=== PATIENT | female | born 1965 | race Caucasian/White ===

== ENCOUNTER 2016-12-29 13:49 | Outpatient (CLI) | payer MEDICARE, OTHER ==
[2016-08-31 19:31] VITALS: BP 113/78
--- NOTE | 2016-12-29 20:35 | Diagnostic Imaging Report ---
[facility] [address] [facility].[address] [address] Report Submission Date: Dec 29, 2016 3:16:07 PM CDT Patient Study Name: SHERYL MARROQUIN Date: Dec 29, 2016 2:07:34 PM CDT Modality Type: CR Gender: F Description: CHEST : 61 Institution: [facility] Physician: RACHEAL GAO - BLAIR chest History: Rib pain and cough Findings: A healed right humeral neck fracture, obesity, and thoracic kyphosis are observed. Right basilar reticular opacities and bronchial wall thickening are observed. The left lung is clear. No pleural effusions are identified. Heart size and pulmonary vascularity are normal. 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 Impression: Suspect right basilar bronchitis. No other acute abnormality observed. Electronically signed on Dec 29, 2016 3:16:07 PM CDT by: Edvin MON
--- NOTE | 2016-12-29 20:36 | Diagnostic Imaging Report ---
[facility] [address] [facility].[address] [address] Report Submission Date: Dec 29, 2016 3:18:07 PM CDT Patient Study Name: SHERYL MARROQUIN Date: Dec 29, 2016 2:10:08 PM CDT Modality Type: CR Gender: F Description: CHEST : 61 Institution: [facility] Physician: RACHEAL GAO - TIFFANY Bilateral ribs History: Left rib pain when coughing Findings: The exam is limited due to obesity and osteopenia. Multiple thoracic vertebroplasties and a healed right humeral neck fracture are noted. There is no definite displaced rib fracture or focal rib lesion. Impression: No definite displaced rib fracture. However, nondisplaced rib fractures could easily be obscured due to osteopenia and obesity. Electronically signed on Dec 29, 2016 3:18:07 PM CDT by: Edvin MON
== END 2016-12-29 13:50 ==
LOC: RAD 13:49
PROVIDERS: ATTEND Family Medicine
DX: R07.81 Pleurodynia (principal)
CPT/HCPCS: 71010; 71110

== ENCOUNTER 2017-03-14 09:39 | Outpatient (CLI) | payer MEDICARE, OTHER ==
[2016-08-31 19:31] VITALS: BP 113/78
--- NOTE | 2017-03-14 14:54 | Diagnostic Imaging Report ---
RACHEAL GAO [facility] [address] [facility] [address] [place], [place]. [address] Report Submission Date: Mar 14, 2017 1:23:17 PM CDT Patient Study Name: SHERYL MARROQUIN Date: Mar 14, 2017 11:40:30 AM CDT Modality Type: CT\SR Gender: F Description: : 61 Institution: [facility] Physician: RACHEAL GAO Examination: CT Abdomen/pelvis History: Abdominal discomfort Comparison exam none provided Technique: CT Abdomen/pelvis oral contrast only. Findings: Liver without cortical irregularity. No regions of altered parenchymal attenuation. Spleen not enlarged. Mild prominence of the right adrenal gland - measuring 1 cm x 1.3 cm. Central Hounsfield units of -2. Left adrenal gland within normal limits. Mild atrophy of the left renal cortical margin. No exophytic mass identified. Right kidney with mild peripheral scarring. Right ureter without abnormal dilation nor is there evidence for calcification centrally as it courses inferiorly towards the bladder. Left ureter also without abnormal dilation or calcification. Scattered pelvic phleboliths. Pancreas without irregularity. Absence of the gallbladder, correlate with surgical history. Abdominal aorta demonstrates peripheral atherosclerotic disease, no aneurysmal dilation. Within the mid to upper left abdomen are some small bowel loops of bowel with thickened mucosa associated air fluid levels. Remainder of the small bowel is without irregularity. Large bowel with stool centrally limiting evaluation. No mesenteric inflammatory changes or free fluid. Anterior midline abdominal and surgical scar. Osseous structures demonstrate degenerative changes. Lung bases with posterior pleural thickening: left greater than right. Kyphoplasty T11 and T12. Impression: Limited study due to non-IV contrast technique. No evidence for suspicious abdominal mass or lesion. Right adrenal adenoma. Few loops small bowel within the upper mid to left abdomen with thickened mucosum and air fluid levels suggesting mild ileitis. No overt obstruction. Correlate with patient symptomatology and follow as clinically warranted. Electronically signed on Mar 14, 2017 1:23:17 PM CDT by: Nabor MON
== END 2017-03-14 09:40 ==
LOC: RAD 09:39
PROVIDERS: ATTEND Family Medicine
DX: R19.00 Intra-abdominal and pelvic swelling, mass and lump, unspecified site (principal)
CPT/HCPCS: 74176; A9698

== ENCOUNTER 2017-04-19 10:17 | Outpatient (CLI) | payer MEDICARE, OTHER ==
[2016-08-31 19:31] VITALS: BP 113/78
[2017-04-20 11:50] LABS: ADENOVIRUS F 40/41 Not Detected (Not Detected); ASTROVIRUS Not Detected (Not Detected); C. DIFFICILE (TOXIN A/B) Not Detected (Not Detected); CRYPTOSPORIDIUM Not Detected (Not Detected); CYCLOSPORA CAYETANENSIS Not Detected (Not Detected); ENTAMOEBA HISTOLYTICA Not Detected (Not Detected); GIARDIA LAMBLIA Not Detected (Not Detected); ROTAVIRUS A Not Detected (Not Detected); SAPOVIRUS Not Detected (Not Detected); VIBRIO CHOLERAE Not Detected (Not Detected)
== END 2017-04-19 10:20 ==
LOC: LAB 10:17
PROVIDERS: ATTEND Internal Medicine
DX: R19.7 Diarrhea, unspecified (principal)
CPT/HCPCS: 36415; 83516; 86256; 87507

== ENCOUNTER 2017-05-27 15:26 | Emergency (ER) | payer MEDICARE, OTHER ==
--- NOTE | 2017-05-27 16:22 | Diagnostic Imaging Report ---
[facility] [address] [facility].[address] [address] Report Submission Date: May 27, 2017 4:18:45 PM CDT Patient Study Name: SHERYL MARROQUIN Date: May 27, 2017 3:51:27 PM CDT Modality Type: CR Gender: F Description: CHEST : 61 Institution: [facility] Physician: PHILLIP BAH - ER Examination: Plain film chest/ribs History: Injury Findings: 5 views of the ribs normal cortical margins. No fracture or dislocation. Adjacent parenchyma demonstrates scarring. Impression: No rib fracture. Electronically signed on May 27, 2017 4:18:45 PM CDT by: Nabor MON
[2017-05-27 16:42] VITALS: BP 128/80
--- NOTE | 2017-05-27 16:42 | ED Physician Documentation ---
General Adult - HISTORIAN Historian: patient - HPI Stated Complaint: Right Rib Pain Chief Complaint: General Adult Additional Information: rt lat low rib pain after twisted and heard/felt pop rt rib cage-xray=no fx Onset: hours (1500hrs) Timing: still present Severity: mild, moderate Further Comments: yes (pt sig obesity has osteoporosis) - ROS CONST: no problems EYES/ENT: denies: problems with vision CVS/RESP: chest pain (area rib c/o) GI/: none MS/SKIN/LYMPH: none NEURO/PSYCH: denies: headache, fainting, dizziness, difficulty with speech ( osteoporosis fibromyalgia dm [id number] disease bad knees) - PAST HX Past History: other (as above) Surgeries/Procedures: , cholecystectomy (throat reconstruction), hysterectomy Allergies/Adverse Reactions: Allergies Allergy/AdvReac Type Severity Reaction Status Date / Time albuterol Allergy Verified 05/27/17 15:53 bupropion HCl Allergy Verified 05/27/17 15:53 [From Wellbutrin] citalopram hydrobromide Allergy Verified 05/27/17 15:53 [From Celexa] clonazepam [From Klonopin] Allergy Verified 05/27/17 15:53 codeine Allergy Verified 05/27/17 15:53 divalproex sodium Allergy Verified 05/27/17 15:53 [From Depakote] furosemide [From Lasix] Allergy Verified 05/27/17 15:53 lithium [[place]] Allergy Verified 05/27/17 15:53 metaxalone [Metaxalone] Allergy Verified 05/27/17 15:53 nickel [Nickel] Allergy Verified 05/27/17 15:53 Penicillins Allergy Verified 05/27/17 15:53 iodotape Allergy Uncoded 05/27/17 15:53 ivp dye Allergy Uncoded 05/27/17 15:53 metal Allergy Uncoded 05/27/17 15:53 steroids Allergy Uncoded 05/27/17 15:53 Home Medications: Ambulatory Orders Medication Instructions Recorded Dextroamphetamine/Amphetamine 30 mg PO D 09/05/13 [Adderall Xr 25 mg Capsule] Ibuprofen [Advil] 400 - 800 mg PO TID #30 tablet 09/05/13 Losartan Potassium [Cozaar] 25 mg PO D 09/05/13 Milnacipran HCl [Savella] 25 mg PO BID 09/05/13 Women's One A Day 1 tab PO D 09/05/13 Amitriptyline HCl [Amitriptyline 50 mg PO D 03/30/16 HCl] Atorvastatin Calcium [Atorvastatin 10 mg PO D 03/30/16 Calcium] Calcium Carbonate [Calcium] 500 mg PO D 03/30/16 Clonidine HCl [Catapres] 0.1 mg PO D 03/30/16 Cyclobenzaprine HCl 5 mg PO D 03/30/16 Diazepam [Diazepam] 10 mg PO D 03/30/16 Aspirin [Duncan] 81 mg PO DAILY 08/31/16 Canagliflozin/Metformin HCl 1 tab PO BID 08/31/16 [Invokamet 150-1,000 mg Tablet] Chlorthalidone [Thalitone] 100 mg PO DAILY 08/31/16 Docusate Sodium [Colace] 100 mg PO DAILY 08/31/16 Polyethylene Glycol 3350 [Miralax] 17 gm PO DAILY 08/31/16 Zoledronic Acid [Reclast] 5 mg IM MONTH 08/31/16 Hydrocodone/Acetaminophen 1 each PO Q4-6 PRN 05/27/17 [Hydrocodon-Acetaminophen 5-325] - SOCIAL HX Smoking History: less than 1 pack/day Alcohol Use: none Drug Use: none - FAMILY HX Family History: No - VITAL SIGNS Vital Signs: Vital Signs Temp Pulse Resp BP Pulse Ox 97 F L 78 18 110/68 99 05/27/17 15:30 05/27/17 15:30 05/27/17 15:30 05/27/17 15:30 05/27/17 15:30 - REVIEWED ASSESSMENTS Nursing Assessment Reviewed: Yes Vitals Reviewed: Yes ED Results Lab/Radiology - Orders Orders: ED Orders Category Date Time Status RIBS UNILAT 2 VIEWS [RAD] Stat Exams 05/27/17 Completed General Adult Physical Exam - PHYSICAL EXAM GENERAL APPEARANCE: mild distress EENT: eye inspection normal NECK: normal inspection, thyroid normal RESPIRATORY: no resp distress, chest non-tender, breath sounds normal CVS: reg rate & rhythm, heart sounds normal ABDOMEN: soft, non-tender BACK: normal inspection SKIN: warm/dry, normal color. No: cyanosis, diaphoresis EXTREMITIES: non-tender, normal range of motion NEURO: oriented X3 Discharge Clincal Impression: costo chondral separation Referrals: Nj Mancilla MD [Primary Care Provider] - 2 Days Home Medications: Ambulatory Orders Dextroamphetamine/Amphetamine [Adderall Xr 25 mg Capsule] 30 mg PO D 09/05/13 Ibuprofen [Advil] 400 - 800 mg PO TID #30 tablet 09/05/13 Losartan Potassium [Cozaar] 25 mg PO D 09/05/13 Milnacipran HCl [Savella] 25 mg PO BID 09/05/13 Women's One A Day 1 tab PO D 09/05/13 Amitriptyline HCl [Amitriptyline HCl] 50 mg PO D 03/30/16 Atorvastatin Calcium [Atorvastatin Calcium] 10 mg PO D 03/30/16 Calcium Carbonate [Calcium] 500 mg PO D 03/30/16 Clonidine HCl [Catapres] 0.1 mg PO D 03/30/16 Cyclobenzaprine HCl 5 mg PO D 03/30/16 Diazepam [Diazepam] 10 mg PO D 03/30/16 Aspirin [Duncan] 81 mg PO DAILY 08/31/16 Canagliflozin/Metformin HCl [Invokamet 150-1,000 mg Tablet] 1 tab PO BID Chlorthalidone [Thalitone] 100 mg PO DAILY 08/31/16 Docusate Sodium [Colace] 100 mg PO DAILY 08/31/16 Polyethylene Glycol 3350 [Miralax] 17 gm PO DAILY 08/31/16 Zoledronic Acid [Reclast] 5 mg IM MONTH 08/31/16 Hydrocodone/Acetaminophen [Hydrocodon-Acetaminophen 5-325] 1 each PO Q4-6 PRN Comments: ibu 600 tid Condition: Good Disposition: 01 HOME, SELF-CARE Decision to Admit: NO Decision Time: 16:46
== END 2017-05-27 16:40 | disposition home or self-care (01) ==
LOC: ED 15:26
DX: R07.81 Pleurodynia (principal)
CPT/HCPCS: 71100; 99283

== ENCOUNTER 2017-07-02 11:49 | Emergency (ER) | payer MEDICARE, OTHER ==
--- NOTE | 2017-07-02 17:15 | Diagnostic Imaging Report ---
[facility] [address] [facility].[address] [address] Report Submission Date: Jul 02, 2017 12:27:30 PM CDT Patient Study Name: SHERYL MARROQUIN Date: Jul 02, 2017 12:04:05 PM CDT Modality Type: CR Gender: F Description: CHEST : 61 Institution: [facility] Physician: PHILLIP BAH - BELLA Chest -two views CLINICAL HISTORY: Right rib pain. Frequent falls. FINDINGS: Examination of the chest PA and lateral views with comparison to examination of 05/27/2017 demonstrates the lungs to be free of coalescent infiltrate. Cardiac silhouette is enlarged and the aorta is atherosclerotic. Post vertebroplasty changes are seen in the mid thoracic and thoracolumbar regions. Degenerative changes are seen throughout the thoracic vertebrae. IMPRESSION: Cardiomegaly and aortic atherosclerosis. No coalescent infiltrate. No definite fracture. Electronically signed on Jul 02, 2017 12:27:30 PM CDT by: Hitesh MON
--- NOTE | 2017-07-10 14:33 | ED Physician Documentation ---
General Adult - HISTORIAN Historian: patient - HPI Chief Complaint: Chest Pain Additional Information: RT RIB PAIN HAS BEEN THERE SEVERAL DAYS PREV TOLD PULLED RIBS. TENDER TO TOUCH WHEN MOVES CERTAIN WAY. SHE DOES NOT REMBER SPECIFIC TRAUMA Timing: still present Severity: mild, moderate Further Comments: yes (PT IS VERY NON COMPLIANT W/DIABETES HBA1C QUITE HIGH ACCD TO FAMILY) - ROS CONST: no problems CVS/RESP: chest pain, shortness of breath (HURT TO DEEP BREATHE) NEURO/PSYCH: anxiety, depression - PAST HX Past History: hypertension, other (DI\) Other History: diabetes Type 1 Allergies/Adverse Reactions: Allergies Allergy/AdvReac Type Severity Reaction Status Date / Time albuterol Allergy Verified 05/27/17 15:53 bupropion HCl Allergy Verified 05/27/17 15:53 [From Wellbutrin] citalopram hydrobromide Allergy Verified 05/27/17 15:53 [From Celexa] clonazepam [From Klonopin] Allergy Verified 05/27/17 15:53 codeine Allergy Verified 05/27/17 15:53 divalproex sodium Allergy Verified 05/27/17 15:53 [From Depakote] furosemide [From Lasix] Allergy Verified 05/27/17 15:53 lithium [[place]] Allergy Verified 05/27/17 15:53 metaxalone [Metaxalone] Allergy Verified 05/27/17 15:53 nickel [Nickel] Allergy Verified 05/27/17 15:53 Penicillins Allergy Verified 05/27/17 15:53 iodotape Allergy Uncoded 05/27/17 15:53 ivp dye Allergy Uncoded 05/27/17 15:53 metal Allergy Uncoded 05/27/17 15:53 steroids Allergy Uncoded 05/27/17 15:53 Home Medications: Ambulatory Orders Medication Instructions Recorded Dextroamphetamine/Amphetamine 30 mg PO D 09/05/13 [Adderall Xr 25 mg Capsule] Ibuprofen [Advil] 400 - 800 mg PO TID #30 tablet 09/05/13 Losartan Potassium [Cozaar] 25 mg PO D 09/05/13 Milnacipran HCl [Savella] 25 mg PO BID 09/05/13 Women's One A Day 1 tab PO D 09/05/13 Amitriptyline HCl [Amitriptyline 50 mg PO D 03/30/16 HCl] Atorvastatin Calcium [Atorvastatin 10 mg PO D 03/30/16 Calcium] Calcium Carbonate [Calcium] 500 mg PO D 03/30/16 Clonidine HCl [Catapres] 0.1 mg PO D 03/30/16 Cyclobenzaprine HCl 5 mg PO D 03/30/16 Diazepam [Diazepam] 10 mg PO D 03/30/16 Aspirin [Duncan] 81 mg PO DAILY 08/31/16 Canagliflozin/Metformin HCl 1 tab PO BID 08/31/16 [Invokamet 150-1,000 mg Tablet] Chlorthalidone [Thalitone] 100 mg PO DAILY 08/31/16 Docusate Sodium [Colace] 100 mg PO DAILY 08/31/16 Polyethylene Glycol 3350 [Miralax] 17 gm PO DAILY 08/31/16 Zoledronic Acid [Reclast] 5 mg IM MONTH 08/31/16 Hydrocodone/Acetaminophen 1 each PO Q4-6 PRN 05/27/17 [Hydrocodon-Acetaminophen 5-325] - SOCIAL HX Smoking History: cigarettes Alcohol Use: none Drug Use: none - FAMILY HX Family History: No - VITAL SIGNS Vital Signs: Vital Signs Temp Pulse Resp BP Pulse Ox 128/80 05/27/17 16:40 - REVIEWED ASSESSMENTS Nursing Assessment Reviewed: Yes Vitals Reviewed: Yes ED Results Lab/Radiology - Radiology Radiology Impressions: NO ACUTE DISTRESS NOTED - Orders Orders: ED Orders Category Date Time Status CHEST P.A.&LAT 2 VIEWS [RAD] Routine Exams 07/02/17 Completed General Adult Physical Exam - PHYSICAL EXAM GENERAL APPEARANCE: moderate distress EENT: eye inspection normal NECK: normal inspection CVS: reg rate & rhythm, heart sounds normal ABDOMEN: non-tender SKIN: warm/dry, normal color. No: cyanosis, diaphoresis EXTREMITIES: non-tender NEURO: oriented X3, motor nml, sensation nml. No: mood/affect nml Discharge Clincal Impression: CONTUSION RIBS POSS COSTO CHONDRAL SYNDR, UNC IABETES Referrals: Primary Doctor,No [Primary Care Provider] - 2 Days Disposition: 01 HOME, SELF-CARE Decision to Admit: NO Decision Time: 12:30
== END 2017-07-02 12:45 | disposition home or self-care (01) ==
LOC: ED 11:49
DX: R07.81 Pleurodynia (principal); E11.649 Type 2 diabetes mellitus with hypoglycemia without coma
CPT/HCPCS: 71020; 99283

== ENCOUNTER 2017-12-14 16:03 | Outpatient (CLI) | payer MEDICARE, OTHER | END 2017-12-14 16:04 | LOC: RAD 16:03 | PROVIDERS: ATTEND Family Medicine | DX: T17.908A Unspecified foreign body in respiratory tract, part unspecified causing other injury, initial encounter (principal); Y99.9 Unspecified external cause status | CPT/HCPCS: 74230; 92611; G8996; G8997 ==

== ENCOUNTER 2017-12-21 18:25 | Emergency (ER) | payer MEDICARE, OTHER ==
[2017-12-21] MEDS ORDERED: 0.9 % SODIUM CHLORIDE 1,000 ML IV ONE (18:42)
[2017-12-21 19:20] LABS: BASOPHILS % 0.3 (0.0-1.5); EOSINOPHILS % 1.3 % (0.0-6.8); MEAN CORPUSCULAR HEMOGLOBIN 30.4 pg (28.0-34.0); MEAN CORPUSCULAR VOLUME 95.4 fl (80.0-100.0); MONOCYTES % 4.7 % (0.0-11.0)
[2017-12-21] MEDS ORDERED: LEVALBUTEROL HCL 1.25 MG/3 ML AMPUL.NEB NEB ONE (19:33)
--- NOTE | 2017-12-21 19:33 | ED Physician Documentation ---
Dyspnea - HISTORIAN Historian: patient - HPI Stated Complaint: Shortness of air Chief Complaint: Dyspnea Onset: hours Duration: continues in ED Initiating Event: upper respiratory illness Severity: moderate Exacerbated By: nothing Associated Symptoms: productive cough Further Comments: yes (52 year old female patient presents with complaints of SOB and low O2 sat. On arrival RA Sat 88%, patient with extremely strong smell of cigarettes.) - ROS CONST: no problems EYES/ENT: none GI/: none NEURO/PSYCH: denies: headache MS/SKIN/LYMPH: none - PAST HX Lung Disease: COPD Cardiac Disease: CAD PE Risk Factors: hypertension, other (morbid obesity, depression) Allergies/Adverse Reactions: Allergies Allergy/AdvReac Type Severity Reaction Status Date / Time albuterol Allergy Verified 12/21/17 18:39 bupropion HCl Allergy Verified 12/21/17 18:39 [From Wellbutrin] citalopram hydrobromide Allergy Verified 12/21/17 18:39 [From Celexa] clonazepam [From Klonopin] Allergy Verified 12/21/17 18:39 codeine Allergy Verified 12/21/17 18:39 divalproex sodium Allergy Verified 12/21/17 18:39 [From Depakote] furosemide [From Lasix] Allergy Verified 12/21/17 18:39 lithium [[place]] Allergy Verified 12/21/17 18:39 metaxalone [Metaxalone] Allergy Verified 12/21/17 18:39 nickel [Nickel] Allergy Verified 12/21/17 18:39 Penicillins Allergy Verified 12/21/17 18:39 iodotape Allergy Uncoded 12/21/17 18:39 ivp dye Allergy Uncoded 12/21/17 18:39 metal Allergy Uncoded 12/21/17 18:39 steroids Allergy Uncoded 12/21/17 18:39 Home Medications: Ambulatory Orders Medication Instructions Recorded Dextroamphetamine/Amphetamine 30 mg PO D 09/05/13 [Adderall Xr 25 mg Capsule] Ibuprofen [Advil] 400 - 800 mg PO TID #30 tablet 09/05/13 Losartan Potassium [Cozaar] 25 mg PO D 09/05/13 Milnacipran HCl [Savella] 25 mg PO BID 09/05/13 Women's One A Day 1 tab PO D 09/05/13 Amitriptyline HCl [Amitriptyline 50 mg PO D 03/30/16 HCl] Atorvastatin Calcium [Atorvastatin 10 mg PO D 03/30/16 Calcium] Calcium Carbonate [Calcium] 500 mg PO D 03/30/16 Clonidine HCl [Catapres] 0.1 mg PO D 03/30/16 Cyclobenzaprine HCl 5 mg PO D 03/30/16 Aspirin [Duncan] 81 mg PO DAILY 08/31/16 Chlorthalidone [Thalitone] 100 mg PO DAILY 08/31/16 Docusate Sodium [Colace] 100 mg PO DAILY 08/31/16 Polyethylene Glycol 3350 [Miralax] 17 gm PO DAILY 08/31/16 Zoledronic Acid [Reclast] 5 mg IM MONTH 08/31/16 Hydrocodone/Acetaminophen 1 each PO Q4-6 PRN 05/27/17 [Hydrocodon-Acetaminophen 5-325] Azithromycin [Zithromax] 250 mg PO DAILY #6 tablet 12/21/17 Dapagliflozin Propanediol [Farxiga] 10 mg PO QDAY 12/21/17 - SOCIAL HX Smoking History: cigarettes - FAMILY HX Family History: denies: none - VITAL SIGNS Vital Signs: Vital Signs Temp Pulse Resp BP Pulse Ox 98.3 F 102 H 22 153/75 89 L 12/21/17 18:25 12/21/17 18:25 12/21/17 18:25 12/21/17 18:25 12/21/17 18:25 - REVIEWED ASSESSMENTS Nursing Assessment Reviewed: Yes Vitals Reviewed: Yes Progress - Progress Progress: Patient states she feels better after Xopenex. Tolerated well. Does not have nebulizer at home. Discharged with Xopenex inhaler. States she cannot take steroids, "causes me to swell". ED Results Lab/Radiology - Lab Results Lab Results: Lab Results 12/21/17 12/21/17 18:55 18:55 WBC 12.40 K/ul H K/ul (4.00-12.00) RBC 5.54 M/ul H M/ul (3.90-5.20) Hgb 16.9 g/dL H g/dL (12.0-16.0) Hct 52.9 % H % (34.5-46.5) MCV 95.4 fl fl (80.0-100.0) MCH 30.4 pg pg (28.0-34.0) MCHC 31.9 g/dL g/dL (30.0-36.0) RDW 17.3 % H % (11.3-14.3) Plt Count 325 K/mm3 K/mm3 (130-400) Neut % (Auto) 80.6 % H % (39.0-79.0) Lymph % (Auto) 11.7 % L % (16.0-50.0) Burt % (Auto) 4.7 % % (0.0-11.0) Eos % (Auto) 1.3 % % (0.0-6.8) Baso % (Auto) 0.3 (0.0-1.5) Neut # (Auto) 10.0 # k/uL H # k/uL (1.4-7.7) Lymph # (Auto) 1.4 # k/uL # k/uL (0.6-4.0) Burt # (Auto) 0.6 # k/uL # k/uL (0.0-0.9) Eos # (Auto) 0.2 # k/uL # k/uL (0.0-0.6) Baso # (Auto) 0.0 # k/uL # k/uL (0.0-0.5) Reactive Lymphs % 1.5 % % (0.0-5.0) Reactive Lymphs # 0.2 # k/uL # k/uL (0.0-0.8) CK-MB (CK-2) 1.7 ng/mL ng/mL (0.0-5.6) - Radiology Radiology Impressions: Chest, 2 view History: COUGH, DYSPNEA TODAY, SMOKER (Hx) Findings: Examination is severely limited by patient's large body habitus. There is mild vascular congestion. No large pleural effusion or pneumothorax grossly identified. Impression: 1. Limited exam due to patient's large body habitus. 2. Cardiomegaly with vascular congestion Electronically signed on Dec 21, 2017 7:17:16 PM CDT by: Alejandro Schmidt - Orders Orders: ED Orders Category Date Time Status Place IV Lock 1T Care 12/21/17 18:42 Active CHEST 2VIEW [RAD] Stat Exams 12/21/17 18:42 Ordered CBC/PLATELET/DIFF Stat Lab 12/21/17 18:55 Completed CKMB Stat Lab 12/21/17 18:55 Completed CMP Stat Lab 12/21/17 19:31 Ordered 0.9 % Sodium Chloride [Normal Saline] 1,000 ml Med 12/21/17 18:42 Discontinued IV NOW Dyspnea Physical Exam - EXAM General Appearance: mild distress EENT: eye inspection normal, [place] Respiratory: no resp. distress, no pain on inspiration, speaks full sentences, decreased air movement (bilateral bases). No: wheezes CVS: reg. 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
[2017-12-21 19:52] LABS: eGFR (African) > 60; eGFR (Non-African) > 60
[2017-12-21 21:53] VITALS: BP 148/68
--- NOTE | 2017-12-22 05:42 | Diagnostic Imaging Report ---
SAGAR PALENCIA (MECHANICAL MAINTENANCE INSTRUCTOR) - ER [facility] [address] [facility] [address] [place], [place]. [address] Report Submission Date: Dec 21, 2017 7:17:16 PM CDT Patient Study Name: SHERYL MARROQUIN Date: Dec 21, 2017 6:58:09 PM CDT Modality Type: DX Gender: F Description: CHEST : 61 Institution: [facility] Physician: SAGAR PALENCIA) - ER Chest, 2 view History: COUGH, DYSPNEA TODAY, SMOKER (Hx) Findings: Examination is severely limited by patient's large body habitus. There is mild vascular congestion. No large pleural effusion or pneumothorax grossly identified. Impression: 1. Limited exam due to patient's large body habitus. 2. Cardiomegaly with vascular congestion Electronically signed on Dec 21, 2017 7:17:16 PM CDT by: Alejandro MON
== END 2017-12-21 20:30 | disposition home or self-care (01) ==
LOC: ED 18:25
DX: J44.1 Chronic obstructive pulmonary disease with (acute) exacerbation (principal); I25.10 Atherosclerotic heart disease of native coronary artery without angina pectoris; I10 Essential (primary) hypertension; F17.210 Nicotine dependence, cigarettes, uncomplicated; E66.9 Obesity, unspecified
CPT/HCPCS: 71046; 80053; 82553; 85025; 99283

== ENCOUNTER 2018-01-25 08:31 | Outpatient (CLI) | payer MEDICARE, OTHER ==
[2018-01-25 09:39] LABS: eGFR (African) > 60; eGFR (Non-African) > 60
== END 2018-01-25 09:00 ==
LOC: LAB 08:31
PROVIDERS: ATTEND Family Medicine
DX: E11.9 Type 2 diabetes mellitus without complications (principal); E61.2 Magnesium deficiency
CPT/HCPCS: 36415; 80053; 80061; 83036; 83735

== ENCOUNTER 2018-02-11 12:38 | Emergency (ER) | payer MEDICARE, OTHER ==
--- NOTE | 2018-02-11 12:41 | ED Physician Documentation ---
Chest Pain - HISTORIAN Historian: patient (adenoids, Hermila, hysterectomy, ortho, colon tumor removal, ) - HPI Stated Complaint: chest pain Chief Complaint: General Adult Onset: days ago (1) Timing: gradual onset, still present Duration: constant, other (more pain after cough ) Last known Well Date: 02/10/18 Last Known Well Time: 10:00 Last known Well Code/Unknown Code: Unknown Context: sleep, rest, other (coughing increases the pain ) Severity: moderate Quality: other ("muscle cramp after cough" ) Chest Pain Radiation: no radiation Chest Pain Signs/Symptoms: dyspnea ("all the time" ). denies: nausea, vomiting , diaphoresis, tachypnea, palpitations, weakness Worsened By: other (cough ) Relieved By: nothing Further Comments: yes (She reports that 3 weeks ago she was treated here in the ER for "cold" and she did take all her antibiotics and notes that she did not ever feel better. Continues to cough and have wheezing. she states the inhaler did "help some" Denies any radiation of pain to her arm or jaw. Denies any back pain. She has no nausea or sweating. She is a diabetic and her blood sugar this am was 183. She denies any increased swelling in her feet/ankles. She is short on air. She states this is not new. She is getting worked up for "something on her voice box" . Denies any dizziness. No headache. She has not tried any OTC meds for the pain. 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 She feels weaker on that side and has issues with swallowing ) GI disease: none Lung disease: COPD Surgeries/Procedures: other Immunizations: UTD Allergies/Adverse Reactions: Allergies Allergy/AdvReac Type Severity Reaction Status Date / Time albuterol Allergy Verified 02/11/18 12:57 bupropion HCl Allergy Verified 02/11/18 12:57 [From Wellbutrin] citalopram hydrobromide Allergy Verified 02/11/18 12:57 [From Celexa] clonazepam [From Klonopin] Allergy Verified 02/11/18 12:57 codeine Allergy Verified 02/11/18 12:57 divalproex sodium Allergy Verified 02/11/18 12:57 [From Depakote] furosemide [From Lasix] Allergy Verified 02/11/18 12:57 lithium [[place]] Allergy Verified 02/11/18 12:57 metaxalone [Metaxalone] Allergy Verified 02/11/18 12:57 nickel [Nickel] Allergy Verified 02/11/18 12:57 Penicillins Allergy Verified 02/11/18 12:57 iodotape Allergy Uncoded 02/11/18 12:57 ivp dye Allergy Uncoded 02/11/18 12:57 metal Allergy Uncoded 02/11/18 12:57 steroids Allergy Uncoded 02/11/18 12:57 Home Medications: Ambulatory Orders Medication Instructions Recorded Dextroamphetamine/Amphetamine 30 mg PO D 09/05/13 [Adderall Xr 25 mg Capsule] Ibuprofen [Advil] 400 - 800 mg PO TID #30 tablet 09/05/13 Losartan Potassium [Cozaar] 25 mg PO D 09/05/13 Milnacipran HCl [Savella] 25 mg PO BID 09/05/13 Women's One A Day 1 tab PO D 09/05/13 Amitriptyline HCl [Amitriptyline 50 mg PO D 03/30/16 HCl] Atorvastatin Calcium [Atorvastatin 10 mg PO D 03/30/16 Calcium] Calcium Carbonate [Calcium] 500 mg PO D 03/30/16 Clonidine HCl [Catapres] 0.1 mg PO D 03/30/16 Cyclobenzaprine HCl 5 mg PO D 03/30/16 Aspirin [[place]can] 81 mg PO DAILY 08/31/16 Chlorthalidone [Thalitone] 100 mg PO DAILY 08/31/16 Docusate Sodium [Colace] 100 mg PO DAILY 08/31/16 Polyethylene Glycol 3350 [Miralax] 17 gm PO DAILY 08/31/16 Zoledronic Acid [Reclast] 5 mg IM MONTH 08/31/16 Hydrocodone/Acetaminophen 1 each PO Q4-6 PRN 05/27/17 [Hydrocodon-Acetaminophen 5-325] Azithromycin [Zithromax] 250 mg PO DAILY #6 tablet 12/21/17 Dapagliflozin Propanediol [Farxiga] 10 mg PO QDAY 12/21/17 - SOCIAL HX Smoking History: cigarettes Alcohol Use: none Drug Use: none - FAMILY HX Family HX: none - VITAL SIGNS Vital Signs: Vital Signs Temp Pulse Resp BP Pulse Ox 148/68 12/21/17 20:30 - REVIEWED ASSESSMENTS Nursing Assessment Reviewed: Yes Vitals Reviewed: Yes Progress - Progress Progress: 1330: states pain is some better and breathing feels easier after inhaler. DG 1455: Discussed findings with pt. She is aware chest xray shows no new changes. She has pain to touch and she states that this is a little better. She has no other symptoms. She is on fpc muscle relaxer but states it is not helping and she is agreeable to trying a new one. She will keep her follow up appt with her specialist Wed. DG ED Results Lab/Radiology - Radiology Radiology Impressions: Examination: PA and lateral chest. History: Evaluate lung graff. PT COUGHING (Hx) Comparison exam: None provided. Findings: PA lateral chest demonstrate a prominent cardiac silhouette. Prominent upper mediastinum. Diffuse parenchymal haziness. No blunting of the costophrenic margins. Osseous structures are appropriate for age. Impression: Prominent cardiac silhouette and upper mediastinum: could represent tortuous aorta and/or mediastinal lymph nodes - correlation with any previous exams recommended if become available. Chronic appearing interstitial changes without gross effusion. Electronically signed on February 11, 2018 2:21:27 PM CDT by: Nabor Yost Comparison exam stated 21 December 2017 and 02 July 2017 now available Cardiac and mediastinal fullness/prominence was present on the previous examinations. Stable chronic interstitial changes. Addendum electronically signed by Nabor Yost on February 11, 2018 2:44:16 PM CDT Chest Pain Physical Exam - EXAM General Appearance: no acute distress, alert EENT: eye inspection normal, ENT inspection normal, pharynx normal, no signs of dehydration, [place], TM's nml Neck: nml inspection Respiratory: no resp. distress, other (tenderness mid chest to left side with palpation . Expiratory wheezing with breathing. She is short on air after she talks for more than approx one min ) CVS: reg. rate & rhythm, no murmur Abdomen: soft, no organomegaly, normal bowel sounds Skin: other (disheveled. Her feet have large cracks and thick layer of dirt. ) Extremities: non-tender, no evidence of injury, no edema Neuro: oriented X3, CN's nml as tested, motor nml, sensation nml, mood/affect nml, cognition normal Discharge Clincal Impression: Costochondritis Referrals: Holden Brown MD [Primary Care Provider] - 2 Days Comments: 1. Cyclobenzaprine 10 mg Take 1 by mouth TID as needed for pain 2. Ibuprofen 800 mg Take 1 by mouth every 12 hours as needed for pain 3. Follow up with specialist Wed as scheduled 4. Return to ER for increasing concerns or pain Condition: Stable Disposition: 01 HOME, SELF-CARE Decision to Admit: NO Date of Decison to Admit: 02/11/18 Decision Time: 14:59
[2018-02-11] MEDS ORDERED: LEVALBUTEROL HCL 1.25 MG/3 ML AMPUL.NEB NEB ONE (12:55)
[2018-02-11] MEDS ORDERED: ASPIRIN 81 MG CHEW TAB PO ONE (12:55)
[2018-02-11 13:44] LABS: MEAN CORPUSCULAR HEMOGLOBIN 30.7 pg (28.0-34.0); MEAN CORPUSCULAR VOLUME 94.9 fl (80.0-100.0)
[2018-02-11 13:45] LABS: MONOCYTES % 4.1 % (0.0-11.0)
[2018-02-11 13:46] LABS: BASOPHILS % 0.3 (0.0-1.5); EOSINOPHILS % 1.4 % (0.0-6.8); NEUTROPHILS # 9.2 # k/uL (1.4-7.7)
[2018-02-11 14:18] LABS: eGFR (African) > 60; eGFR (Non-African) > 60
--- NOTE | 2018-02-11 14:49 | Diagnostic Imaging Report ---
ARIS CABRALES [facility] [address] [facility] [address] [place], [place]. [address] Report Submission Date: February 11, 2018 2:21:27 PM CDT Patient Study Name: SHERYL MARROQUIN Date: February 11, 2018 1:54:46 PM CDT Modality Type: DX Gender: F Description: CHEST : 61 Institution: [facility] Physician: ARIS CABRALES Examination: PA and lateral chest. History: Evaluate lung graff. PT COUGHING (Hx) Comparison exam: None provided. Findings: PA lateral chest demonstrate a prominent cardiac silhouette. Prominent upper mediastinum. Diffuse parenchymal haziness. No blunting of the costophrenic margins. Osseous structures are appropriate for age. Impression: Prominent cardiac silhouette and upper mediastinum: could represent tortuous aorta and/or mediastinal lymph nodes - correlation with any previous exams recommended if become available. Chronic appearing interstitial changes without gross effusion. Electronically signed on February 11, 2018 2:21:27 PM CDT by: Nabor Yost Comparison exam stated 21 December 2017 and 02 July 2017 now available Cardiac and mediastinal fullness/prominence was present on the previous examinations. Stable chronic interstitial changes. Addendum electronically signed by Nabor Yost on February 11, 2018 2:44:16 PM CDT MTDD
[2018-02-11] MEDS ORDERED: ORPHENADRINE CITRATE 60 MG/2ML IV ONE (14:50)
[2018-02-11] MEDS ORDERED: KETOROLAC TROMETHAMINE 30 MG/1ML VIAL IVP ONE (14:51)
[2018-02-11 15:29] VITALS: BP 126/71
== END 2018-02-11 15:20 | disposition home or self-care (01) ==
LOC: ED 12:38
DX: M94.0 Chondrocostal junction syndrome [Tietze] (principal)
CPT/HCPCS: 71046; 80053; 82550; 84484; 85025; 93005; 94640; 96374; 99284; J1885; J2360; J7614; 96375; 99283; S1016

== ENCOUNTER → 2018-05-17 | Outpatient (CLI) | payer MEDICARE, OTHER ==
[2018-05-17 14:42] LABS: BASOPHILS % 0.3 (0.0-1.5); EOSINOPHILS % 1.1 % (0.0-6.8); MEAN CORPUSCULAR HEMOGLOBIN 34.1 pg (28.0-34.0); MEAN CORPUSCULAR VOLUME 101.1 fl (80.0-100.0); MONOCYTES % 5.6 % (0.0-11.0); NEUTROPHILS # 7.7 # k/uL (1.4-7.7)
[2018-05-17 21:52] LABS: TOTAL PROTEIN 6.9 g/dL (6.0-8.5)
== END ==
LOC: RAD 14:08
PROVIDERS: ATTEND Family Medicine
DX: M79.89 Other specified soft tissue disorders (principal); D75.1 Secondary polycythemia; E11.9 Type 2 diabetes mellitus without complications
CPT/HCPCS: 80053; 85025

== ENCOUNTER 2018-05-18 08:38 | Outpatient (CLI) | payer MEDICARE, OTHER | END 2018-05-18 08:40 | LOC: RAD 08:38 | PROVIDERS: ATTEND Family Medicine | DX: Z53.9 Procedure and treatment not carried out, unspecified reason (principal) ==

== ENCOUNTER 2018-05-22 09:43 | Outpatient (CLI) | payer MEDICARE, OTHER ==
--- NOTE | 2018-05-22 13:38 | Diagnostic Imaging Report ---
KALPESH CARDOZA [facility] [address] [facility].[address] [address] Report Submission Date: May 22, 2018 1:34:05 PM CDT Patient Study Name: SHERYL MARROQUIN Date: May 22, 2018 10:53:35 AM CDT Modality Type: US Gender: F Description: : 61 Institution: [facility] Physician: KALPESH CARDOZA Examination: Ultrasound left vein. History: Upper extremity swelling Comparison exams: None provided Findings: Sonographic evaluation of the left upper extremity venous system including the internal jugular, subclavian, axillary, cephalic, brachial, basilic, radial, and ulnar veins. No evidence for luminal filling defect. Normal compressibility. Normal response to augmentation and respiratory variation. Impression: No evidence for venous thrombosis. Electronically signed on May 22, 2018 1:34:05 PM CDT by: Nabor MON
== END 2018-05-22 12:40 ==
LOC: RAD 09:43
PROVIDERS: ATTEND Family Medicine
DX: M79.89 Other specified soft tissue disorders (principal)
CPT/HCPCS: 93971

== ENCOUNTER 2018-11-22 18:53 | Emergency (ER) | payer MEDICARE, OTHER ==
[2018-11-22] MEDS ORDERED: 0.9 % SODIUM CHLORIDE 1,000 ML IV ONE ×2 (19:47→19:56)
[2018-11-22] MEDS ORDERED: ONDANSETRON HCL/PF 4 MG/ 2ML VIAL IVP ONE (19:56)
--- NOTE | 2018-11-22 20:00 | ED Physician Documentation ---
General Adult - HISTORIAN Historian: patient, child - HPI Stated Complaint: n/v and diarrhea Chief Complaint: General Adult Additional Information: n/e/d frequent and recurrent for past 4 edays-has become weak fell earlier bp is low pt alert oriented ambulatory last bm this am before noon Onset: days ago (4-5 son had similar before lasted only 1-2 days-pt c/o weakness) Timing: still present Severity: moderate Further Comments: yes (pt is morbidly obese) - ROS CONST: no problems EYES/ENT: denies: problems with vision, sore throat, nasal drainage CVS/RESP: denies: chest pain, shortness of breath, cough GI/: abdominal pain, vomiting, nausea, diarrhea MS/SKIN/LYMPH: none - PAST HX Past History: other (cva diabetes w/apparent peripheral neuropathy osteoporosis fobromyalgia copd bipolar) Allergies/Adverse Reactions: Allergies Allergy/AdvReac Type Severity Reaction Status Date / Time albuterol Allergy Verified 11/22/18 19:47 bupropion HCl Allergy Verified 11/22/18 19:47 [From Wellbutrin] citalopram hydrobromide Allergy Verified 11/22/18 19:47 [From Celexa] clonazepam [From Klonopin] Allergy Verified 11/22/18 19:47 codeine Allergy Verified 11/22/18 19:47 divalproex sodium Allergy Verified 11/22/18 19:47 [From Depakote] furosemide [From Lasix] Allergy Verified 11/22/18 19:47 lithium [[place]] Allergy Verified 11/22/18 19:47 metaxalone [Metaxalone] Allergy Verified 11/22/18 19:47 nickel [Nickel] Allergy Verified 11/22/18 19:47 Penicillins Allergy Verified 11/22/18 19:47 iodotape Allergy Uncoded 11/22/18 19:47 ivp dye Allergy Uncoded 11/22/18 19:47 metal Allergy Uncoded 11/22/18 19:47 steroids Allergy Uncoded 11/22/18 19:47 Home Medications: Ambulatory Orders Medication Instructions Recorded Dextroamphetamine/Amphetamine 30 mg PO D 09/05/13 [Adderall Xr 25 mg Capsule] Milnacipran HCl [Savella] 25 mg PO BID 09/05/13 Women's One A Day 1 tab PO D 09/05/13 Atorvastatin Calcium 10 mg PO D 03/30/16 Calcium Carbonate [Calcium] 500 mg PO D 03/30/16 Aspirin [[place]] 81 mg PO DAILY 08/31/16 Chlorthalidone [Thalitone] 100 mg PO DAILY 08/31/16 Hydrocodone/Acetaminophen 1 each PO Q4-6 PRN 05/27/17 [Hydrocodon-Acetaminophen 5-325] Dapagliflozin Propanediol [Farxiga] 10 mg PO QDAY 12/21/17 - SOCIAL HX Smoking History: non-smoker, quit greater than 1 year Alcohol Use: none Drug Use: none - FAMILY HX Family History: No - VITAL SIGNS Vital Signs: Vital Signs Temp Pulse Resp BP Pulse Ox 97.7 F 95 H 20 77/57 94 11/22/18 19:14 11/22/18 19:14 11/22/18 19:14 11/22/18 19:14 11/22/18 19:14 - REVIEWED ASSESSMENTS Nursing Assessment Reviewed: Yes Vitals Reviewed: Yes ED Results Lab/Radiology - Orders Orders: ED Orders Category Date Time Status CBC/PLATELET/DIFF Routine Lab 11/22/18 Ordered CMP Routine Lab 11/22/18 Ordered INFLUENZA A&B Routine Lab 11/22/18 Uncollected URINALYSIS Routine Lab 11/22/18 Ordered 0.9 % Sodium Chloride [Normal Saline] 1,000 ml Med 11/22/18 19:47 Discontinued IV .STK-MED NORMAL SALINE @ 1000 MLS/HR ( 1000ml BOLUS) Med 11/22/18 19:56 Ordered 0.9 % Sodium Chloride [Normal Saline] 1,000 ml IV Q1H Ondansetron HCl/Pf [Zofran] Med 11/22/18 19:56 Once 4 mg IVP NOW ONE General Adult Physical Exam - PHYSICAL EXAM GENERAL APPEARANCE: moderate distress EENT: eye inspection normal NECK: normal inspection, thyroid normal CVS: reg rate & rhythm, heart sounds normal ABDOMEN: soft, non-tender (marked protuberant-obesity) SKIN: warm/dry, normal color. No: cyanosis, diaphoresis EXTREMITIES: non-tender, normal range of motion, edema NEURO: oriented X3, motor nml, sensation nml, mood/affect nml, cognition normal Discharge Clincal Impression: viral gastroenteritis w/ severe dehydrat, assoc hypoglycemia and hypotension, uncontrolled diabetes mellituss , azotemia poss renal failure, orbid obesity Referrals: Holden Brown MD [Primary Care Provider] - 2 Days Comments: must f/u w/pcp next 1-3 days--stick to diabetic diet anduse 2/3 gatoraid 1/3 water to continue ORT. ret to ed prn. pt has zofrana home to use prn Condition: Good Disposition: 01 HOME, SELF-CARE Decision to Admit: NO Decision Time: 22:56
[2018-11-22 20:03] LABS: MEAN CORPUSCULAR HEMOGLOBIN 31.4 pg (28.0-34.0)
[2018-11-22 20:04] LABS: BASOPHILS % 0.7 (0.0-1.5); EOSINOPHILS % 1.4 % (0.0-6.8); MONOCYTES % 4.1 % (0.0-11.0); NEUTROPHILS # 9.9 # k/uL (1.4-7.7)
[2018-11-22] MEDS ORDERED: IBUPROFEN 200 MG TABLET PO ONE ×2 (21:17)
[2018-11-22] MEDS ORDERED: NORMAL SALINE 1,000 ML IV.SOLN IV STA (21:45)
[2018-11-22 23:13] VITALS: BP 108/68
== END 2018-11-22 23:10 | disposition home or self-care (01) ==
LOC: ED 18:53
DX: A08.4 Viral intestinal infection, unspecified (principal); E86.0 Dehydration; I95.9 Hypotension, unspecified; E11.649 Type 2 diabetes mellitus with hypoglycemia without coma; R79.89 Other specified abnormal findings of blood chemistry; E66.01 Morbid (severe) obesity due to excess calories; Z68.43 Body mass index [BMI] 50.0-59.9, adult
CPT/HCPCS: 36415; 80053; 83690; 85025; 87400; 96360; 96374; 99283; 99284; J2405; J7030; S1016

== ENCOUNTER 2018-12-13 08:36 | Outpatient (CLI) | payer MEDICARE, OTHER ==
[2018-12-13 08:49] LABS: BASOPHILS % 0.7 (0.0-1.5); EOSINOPHILS % 3.5 % (0.0-6.8); MEAN CORPUSCULAR HEMOGLOBIN 30.8 pg (28.0-34.0); MONOCYTES % 5.1 % (0.0-11.0); NEUTROPHILS # 9.7 # k/uL (1.4-7.7)
[2018-12-13 09:07] LABS: eGFR (Non-African) > 60
== END 2018-12-13 09:00 ==
LOC: LAB 08:36
PROVIDERS: ATTEND Family Medicine
DX: I51.7 Cardiomegaly (principal); E11.9 Type 2 diabetes mellitus without complications
CPT/HCPCS: 36415; 80053; 80061; 85025

== ENCOUNTER 2018-12-20 10:27 | Outpatient (CLI) | payer MEDICARE, OTHER | END 2018-12-20 10:30 | LOC: RT 10:27 | PROVIDERS: ATTEND Family Medicine | DX: R55 Syncope and collapse (principal) ==

== ENCOUNTER 2019-04-07 14:58 | Emergency (ER) | payer OTHER ==
--- NOTE | 2019-04-07 15:08 | ED Physician Documentation ---
General Adult - HISTORIAN Historian: patient - HPI Stated Complaint: sob Chief Complaint: General Adult Onset: hours Timing: still present Severity: moderate Further Comments: yes (Pt is a 53 yo obese female with COPD on 3L NC O2 continuous who presents with sob and c/o body swelling, edema of hands and lower extremities b/l. Pt has not had chest pain, but has numbness/tingling of hands and feet. Pt has previous hx CVA.) - ROS CONST: weakness EYES/ENT: none CVS/RESP: shortness of breath, cough GI/: other ("abd swelling") MS/SKIN/LYMPH: leg swelling, other (hand swelling, b/l LE swelling) - PAST HX Past History: COPD, other (HLD, osteroporosis, DM) Other History: CVA Surgeries/Procedures: other (adenoids, hysterectomy, cholecystectomy, ortho surg, colon tumor removed) Allergies/Adverse Reactions: Allergies Allergy/AdvReac Type Severity Reaction Status Date / Time albuterol Allergy Verified 04/07/19 15:22 bupropion HCl Allergy Verified 04/07/19 15:22 [From Wellbutrin] citalopram hydrobromide Allergy Verified 04/07/19 15:22 [From Celexa] clonazepam [From Klonopin] Allergy Verified 04/07/19 15:22 codeine Allergy Verified 04/07/19 15:22 divalproex sodium Allergy Verified 04/07/19 15:22 [From Depakote] furosemide [From Lasix] Allergy Verified 04/07/19 15:22 lithium [[place]] Allergy Verified 04/07/19 15:22 metaxalone [Metaxalone] Allergy Verified 04/07/19 15:22 nickel [Nickel] Allergy Verified 04/07/19 15:22 Penicillins Allergy Verified 04/07/19 15:22 iodotape Allergy Uncoded 04/07/19 15:22 ivp dye Allergy Uncoded 04/07/19 15:22 metal Allergy Uncoded 04/07/19 15:22 steroids Allergy Uncoded 04/07/19 15:22 Home Medications: Ambulatory Orders Medication Instructions Recorded Dextroamphetamine/Amphetamine 30 mg PO D 09/05/13 [Adderall Xr 25 mg Capsule] Milnacipran HCl [Savella] 25 mg PO BID 09/05/13 Women's One A Day 1 tab PO D 09/05/13 Atorvastatin Calcium 10 mg PO D 03/30/16 Calcium Carbonate [Calcium] 500 mg PO D 03/30/16 Aspirin [[place]] 81 mg PO DAILY 08/31/16 Hydrocodone/Acetaminophen 1 each PO Q4-6 PRN 05/27/17 [Hydrocodon-Acetaminophen 5-325] Dapagliflozin Propanediol [Farxiga] 10 mg PO QDAY 12/21/17 - SOCIAL HX Smoking History: non-smoker - FAMILY HX Family History: No - VITAL SIGNS Vital Signs: Vital Signs Temp Pulse Resp BP Pulse Ox 108/68 11/22/18 23:08 - REVIEWED ASSESSMENTS Nursing Assessment Reviewed: Yes Vitals Reviewed: Yes Progress - Progress Progress: CXR: History: Shortness of breath Findings: the heart is enlarged. Pulmonary vascular congestion is present. Left pleural effusion left basilar atelectasis/infiltrate is suggested however evaluation of the lung bases limited due patient's large body habitus. Impression: 1. Cardiomegaly with pulmonary vascular congestion suggesting congestive heart failure. 2. Left pleural effusion left basilar atelectasis /infiltrate suggested. Levaquin 500 mg IV in ER Transfer to [facility]. Dr. Meraz - EKG/XRAY/CT EKG: rhythm (Sinus tachycardia, VV=642; low voltage; normal axis; normal RI interval.) General Adult Physical Exam - PHYSICAL EXAM GENERAL APPEARANCE: moderate distress EENT: pharynx normal NECK: normal inspection, supple RESPIRATORY: wheezes (distant breath sounds) CVS: reg rate & rhythm, heart sounds normal ABDOMEN: soft, normal bowel sounds, distended BACK: normal inspection, no CVA tenderness SKIN: warm/dry, normal color EXTREMITIES: non-tender, normal range of motion, edema (3+) NEURO: oriented X3, motor nml, sensation nml Discharge Clincal Impression: dyspnea, pulm congestion, pleural effusion, pneumonia Referrals: Holden Brown MD [Primary Care Provider] - Condition: Stable Disposition: XF [facility] Decision to Admit: NO Decision Time: 18:13
[2019-04-07 15:15] LABS: BASOPHILS % 0.5 % (0.0-1.5); NEUTROPHILS # 8.2 # k/uL (1.4-7.7)
[2019-04-07 15:20] VITALS: BP 131/42
[2019-04-07 15:23] LABS: eGFR (Non-African) > 60
--- NOTE | 2019-04-07 16:06 | Diagnostic Imaging Report ---
MAGGI TOBAR [facility] [address] [facility] [address] [place] [address]. [id number] Report Submission Date: Apr 07, 2019 3:57:50 PM CDT Patient Study Name: SHERYL MARROQUIN Date: Apr 07, 2019 3:35:05 PM CDT Modality Type: DX Gender: F Description: CHEST 1VIEW : 61 Institution: [facility] Physician: MAGGI TOBAR Chest, one view History: Shortness of breath Findings: the heart is enlarged. Pulmonary vascular congestion is present. Left pleural effusion left basilar atelectasis/infiltrate is suggested however evaluation of the lung bases limited due patient's large body habitus. Impression: 1. Cardiomegaly with pulmonary vascular congestion suggesting congestive heart failure. 2. Left pleural effusion left basilar atelectasis /infiltrate suggested. Electronically signed on Apr 07, 2019 3:57:50 PM CDT by: Alejandro MON
== END 2019-04-07 18:53 | disposition short-term general hospital (02) ==
LOC: ED 14:58
DX: J18.9 Pneumonia, unspecified organism (principal); J81.0 Acute pulmonary edema; J91.8 Pleural effusion in other conditions classified elsewhere
CPT/HCPCS: 71045; 80053; 82550; 82553; 83880; 84484; 85025; 85379; 87040; 93005; 96372; 99283; 99284; J1956; S1016

== ENCOUNTER 2019-04-16 11:54 | Outpatient (CLI) | payer OTHER ==
[2019-04-16 12:19] LABS: BASOPHILS % 0.3 % (0.0-1.5); NEUTROPHILS # 10.7 # k/uL (1.4-7.7)
[2019-04-16 12:38] LABS: eGFR (Non-African) > 60
--- NOTE | 2019-04-16 15:58 | Diagnostic Imaging Report ---
KALPESH CARDOZA [facility] [address] [facility] [address] [place], [place]. [address] Report Submission Date: Apr 16, 2019 3:50:21 PM CDT Patient Study Name: SHERYL MARROQUIN Date: Apr 16, 2019 12:04:59 PM CDT Modality Type: DX Gender: F Description: CHEST 2VIEW : 61 Institution: [facility] Physician: KALPESH CARDOZA PA and lateral chest History: Short of breath PA and lateral chest dated April 16, 2019 is compared with February 11, 2018 and April 07, 2019. The cardiomediastinal silhouette is unchanged. The mediastinum is widened, unchanged. The possibility of a thoracic aortic aneurysm would not be excluded. However, these findings have not changed back to February 11, 2018. When compared with April 07, 2019, there is improved aeration of the left lung base. However, there is new, mild infiltrate at the right lung. Old right rib fractures are present. Assessment is limited due to the patient's obese body habitus. Impression: Cardiomegaly, unchanged. The mediastinum is wide but unchanged back to February 2018. An underlying thoracic aortic aneurysm would not be excluded in this setting. Consider chest CT. Improved aeration of the left lung base. New, mild right basilar infiltrate. Electronically signed on Apr 16, 2019 3:50:21 PM CDT by: Nallely MON
== END 2019-04-16 11:59 ==
LOC: LAB 11:54
PROVIDERS: ATTEND Family Medicine
DX: R06.09 Other forms of dyspnea (principal)
CPT/HCPCS: 36415; 71046; 80053; 85025